=== PATIENT | female | born 1960 | race Two or more races ===

== ENCOUNTER 2022-12-11 22:16 | Emergency (ER) | payer OTHER ==
[~2022-12-11] VITALS: Ht 157.5 cm; Wt 63.5 kg
[2022-12-12] MEDS ORDERED: LEVSIN/SL0.125 MG SL (06:45)
[2022-12-12] MEDS ORDERED: ONDANSETRON ODT4 MG PO (06:45)
[2022-12-12] MEDS ORDERED: PEPCID40 MG PO ×2 (06:47→06:48)
== END 2022-12-12 06:54 | disposition home or self-care (01) ==
LOC: ER 22:16
DX: R10.84 Generalized abdominal pain (principal); Z85.118 Personal history of other malignant neoplasm of bronchus and lung; Z88.0 Allergy status to penicillin